=== PATIENT | female | born 1985 | race Caucasian/White ===

== ENCOUNTER 2017-01-26 19:11 | Emergency (ER) | payer SELFPAY ==
[2017-01-26 19:16] VITALS: BP 133/87; BMI 26.1
[2017-01-26] MEDS ORDERED: XYLOCAINE 1 % (PLAIN) ONE (19:36)
--- NOTE | 2017-01-26 19:41 | DR.GENAD ---
HPI - PCP Primary Care Physician: NFD - Complaint/Symptoms Chief Complaint Doctors Comments: Agree with statement Chief Complaint:: "I was cleaning under my couch and I got a fish hook stuck in my finger. My mother is a nurse and can't get it out either." - Source History Provided: Patient - Mode of Arrival Mode of Arrival: Ambulatory - Timing Onset of Chief Complaint: 01/26/17 PMH - PMH Past Medical History: Yes Past Medical History: Anxiety, Depression Past Surgical History: Yes Surgical History: , TEMPORARY ADMINISTRATIVE ASSISTANT Surgery, Other Past Surgical History Comment: Nose surgery, Knee surgery, Ankle - Family History History of Family Medical Conditions: Yes Family Medical History: Diabetes Mellitus, Cancer, DC, Coronary Artery Disease, Heart Failure, Sudden Cardiac , Hypertension - Social History Does patient currently use any type of tobacco product: No Have you used tobacco products in the last 12 months: No Type of Tobacco Use: Cigarettes Does any household member use tobacco: No Alcohol Use: None Do you use any recreational Drugs:: No Lives With: Family Lives Where: Home - infectious screening In the last 2 months have you had wt loss of >10#?: NO Have you had fever, night sweats or hemotysis?: No Have you traveled outside the country in the last 6 months?: No Isolation: Standard ROS - Review of Systems Constitutional: No Symptoms Reported Eyes: No Symptoms Reported ENTM: No Symptoms Reported Respiratoy: No Symptoms Reported Cardiovascular: No Symptoms Reported Gastrointestinal/Abdominal: No Symptoms Reported Genitourinary: No Symptoms Reported Neurological: No Symptoms Reported Musculoskeletal: Other (right hand 5th digit) Integumentary: No Symptoms Reported Hematologic/Lymphatic: No Symptoms Reported Endocrine: No Symptoms Reported Psychiatric: No Symptoms Reported All Other Systems: Reviewed and Negative PE - Vital Signs Vitals: Temperature 99.6 F Pulse Rate 73 Respiratory Rate 18 Blood Pressure 133/87 O2 Sat by Pulse Oximetry 99 - General Limitations: No Limitations General Appearance: Alert, In No Apparent Distress - Head Head Exam: Normal Inspection, Atraumatic - Eyes Eye exam: Normal Appearance, PERRL, EOMI - ENT ENT Exam: Normal Exam, Normal Oropharynx External Ear Exam: Normal External Inspection TM/Canal Exam: Bilateral Normal Nose Exam: Normal Nose Exam Mouth Exam: Normal Inspection Throat Exam: Normal Inspection - Neck Neck Exam: Normal Inspection - Chest Chest Inspection: Normal Inspection - Respiratory Respiratory Exam: Normal Lung Sounds Bilat Respiratory Exam: Bilateral Clear to Auscultation - Cardiovascular Cardiovascular Exam: Regular Rate - Abdominal Exam Abdominal Exam: Normal Inspection Abdominal Tenderness: negative: RUQ, RLQ, LUQ, LLQ, Epigastrium, Suprapubic, Diffuse, Mild, Moderate, Severe, Other - Extremities Extremities Exam: Other (right hand 5th digit with a fish hoot imbeded) - Back Back Exam: Normal Inspection - Neurologic Neurological Exam: Alert, Oriented X3, CN II-XII Intact - Psychiatric Psychiatric Exam: Normal Affect - Skin Skin Exam: Warm, Dry Course - Reevaluation 1st: Improved Procedures - Procedure Comments Procedures: Removed fish fernandes from 5th digit right hand - Incision and Drainage Blade Size: 11 I & D Procedure: betadine prep - Laceration/Wound Repair Right 4th Digit Wound Length (cm): 1 Wound Explored: foreign body removed Betadine Prep?: Yes Anesthesia: 1% Lidocaine (5) Volume Anesthetic (ccs): 5 Wound Repaired With: Dermabond - Diagnosis Discharge Problem: Fish hook injury of finger of right hand Qualifiers: Encounter type: initial encounter Qualified Code(s): S69.91XA - Unspecified injury of right wrist, hand and finger(s), initial encounter - Discharge Plan Condition: Stable - Follow ups/Referrals Follow ups/Referrals: NFD,None [Primary Care Provider] - 3 days - Instructions
[2017-01-26] MEDS ORDERED: BACTROBAN OINT ONE (19:51)
[2017-01-26] MEDS ORDERED: ADACEL TDaP IM ONE ×2 (19:53→19:54)
[2017-01-26] MEDS ORDERED: BACTROBAN OINT TOP ONE (19:53)
== END 2017-01-26 20:08 | disposition home or self-care (01) ==
LOC: ER 19:24
PROC: 0XQV0ZZ Repair Right Little Finger, Open Approach (ICD-10-PCS; principal; 2017-01-26)
DX: S69.91XA Unspecified injury of right wrist, hand and finger(s), initial encounter (principal); W45.8XXA Other foreign body or object entering through skin, initial encounter; Y92.9 Unspecified place or not applicable
CPT/HCPCS: 12001; 90471; 99282; J2001